=== PATIENT | male | born 1990 | race Caucasian/White ===

== ENCOUNTER → 2019-07-16 09:54 | Outpatient (BNVA) | payer MEDICARE, MEDICAID, SELFPAY | PROVIDERS: Family Provider Nurse Practitioner Family; PCP Nurse Practitioner Family; Visit Provider Nurse Practitioner Family | DX: E78.2 Mixed hyperlipidemia (principal); E03.9 Hypothyroidism, unspecified | CPT/HCPCS: 80061; 84443 ==

== ENCOUNTER 2019-07-21 13:40 | Outpatient (CLI) | payer MEDICARE, MEDICAID, SELFPAY ==
--- NOTE | 2019-07-21 13:42 | USCV_ITS ---
Keshav Gonzales Age: 29 Gender: M : 1990 Exam Date: 07/21/2019 14:12 Ordering Phys: Jaylene Leggett MD ([email or web address]) Technologist: Gianfranco Zabala Exam Location: [facility] [place] Indication: EXERTIONAL DYSPNEA BP: 130 / 75 HR: 64 Rhythm: Sinus Technical Quality: Adequate MEASUREMENTS (Male / Female) Normal Values 2D ECHO LVOT Diameter 2.1 cm LV Ejection Fraction MOD 2C 68.1 % LV Ejection Fraction 2C AL 67.0 % LA Diameter 4.0 cm Aorta at Sinotubular Diameter 3.1 cm M-MODE LV Diastolic Diameter MM 5.8 cm 4.2 - 5.9 / 3.9 - 5.3 cm LV Systolic Diameter MM 4.1 cm LV Ejection Fraction MM Teich 55.1 % IVS Diastolic Thickness MM 0.8 cm 0.6 - 1.0 / 0.6 - 0.9 cm IVS Systolic Thickness MM 1.3 cm LVPW Diastolic Thickness MM 0.9 cm 0.6 - 1.0 / 0.6 - 0.9 cm LVPW Systolic Thickness MM 1.8 cm RV Diastolic Diameter MM 1.6 cm Aortic Annulus Diameter 3.2 cm LA Ao Ratio MM 1.2 MV E Point Septal Separation 1.2 cm DOPPLER AV Peak Velocity 120.0 cm/s LVOT Peak Velocity 102.0 cm/s AV Area Cont Eq vti 2.5 cm squared AV Area Cont Eq pk 2.8 cm squared MV Area PHT 5.0 cm squared Mitral E to A Ratio 0.8 MV E' Velocity 11.0 cm/s Mitral E to MV E' Ratio 6.7 Mitral E to LV E' Lateral Ratio 5.9 Mitral E to LV E' Septal Ratio 7.8 TR Peak Velocity 134.0 cm/s TR Peak Gradient 7.1 mmHg TV Peak E Velocity 94.0 cm/s Right Atrial Pressure 3.0 mmHg Pulmonary Artery Systolic Pressu 10.2 mmHg PV Peak Velocity 77.0 cm/s FINDINGS Left Ventricle Normal left ventricular cavity size. Normal left ventricular wall thickness. Normal left ventricular systolic function. Left ventricular ejection fraction is estimated at 55-60 %. No regional wall motion abnormalities. Normal diastolic function. Right Ventricle Normal right ventricular size and systolic function. Right ventricular systolic pressure 10.2 mmHg. Right Atrium Normal right atrial size. Left Atrium Normal left atrial size. Mitral Valve Structurally normal mitral valve. No mitral valve stenosis. Trace mitral valve regurgitation. Aortic Valve Structurally normal trileaflet aortic valve. No aortic valve stenosis. No aortic valve regurgitation. Tricuspid Valve Structurally normal tricuspid valve. Trace tricuspid valve regurgitation. Pulmonic Valve Pulmonic valve not well visualized. No pulmonary valve stenosis. No pulmonary valve regurgitation. Pericardium No pericardial effusion. Aorta Normal size aortic root and proximal ascending aorta. CONCLUSIONS 1. Normal left ventricular cavity size, wall thickness and systolic function. Left ventricular ejection fraction is estimated at 55-60 %. No regional wall motion abnormalities. Normal diastolic function. 2. Normal right ventricular size and systolic function. 3. No significant valvular abnormality. 4. No prior similar studies to compare. Jaylene Leggett MD (Electronically Signed) Final Date: 22 July 2019 13:53 S
== END 2019-07-21 13:41 | disposition home or self-care (01) ==
LOC: RAD 13:41
PROVIDERS: Family Provider Nurse Practitioner Family; PCP Nurse Practitioner Family; Visit Provider Internal Medicine Cardiovascular Disease
DX: I08.1 Rheumatic disorders of both mitral and tricuspid valves (principal); R06.09 Other forms of dyspnea
CPT/HCPCS: 93306

== ENCOUNTER → 2019-08-27 09:43 | Outpatient (BNVA) | payer MEDICARE, MEDICAID, SELFPAY | PROVIDERS: Visit Provider Nurse Practitioner | DX: F33.0 Major depressive disorder, recurrent, mild (principal); F84.0 Autistic disorder; F43.12 Post-traumatic stress disorder, chronic | CPT/HCPCS: 99213 ==

== ENCOUNTER → 2019-12-02 11:32 | Outpatient (BNVA) | payer MEDICARE, MEDICAID, SELFPAY | PROVIDERS: Visit Provider Nurse Practitioner Family | DX: I10 Essential (primary) hypertension (principal); R73.9 Hyperglycemia, unspecified | CPT/HCPCS: 80053; 80061; 83036; 84443; 85025 ==

== ENCOUNTER → 2020-02-10 09:14 | Outpatient (BNVA) | payer MEDICARE, MEDICAID, SELFPAY | PROVIDERS: Visit Provider Nurse Practitioner | DX: F43.12 Post-traumatic stress disorder, chronic (principal); F84.0 Autistic disorder; F33.0 Major depressive disorder, recurrent, mild | CPT/HCPCS: 99213 ==

== ENCOUNTER → 2020-05-20 09:01 | Outpatient (BNVA) | payer MEDICARE, MEDICAID, SELFPAY | PROVIDERS: Visit Provider Family Medicine | DX: E03.9 Hypothyroidism, unspecified (principal); E78.5 Hyperlipidemia, unspecified; I10 Essential (primary) hypertension | CPT/HCPCS: 80053; 80061; 84443; 85025 ==

== ENCOUNTER → 2020-08-17 11:30 | Outpatient (BNVA) | payer MEDICARE, MEDICAID, SELFPAY | PROVIDERS: Visit Provider Nurse Practitioner | DX: F33.0 Major depressive disorder, recurrent, mild (principal); F84.0 Autistic disorder; F43.12 Post-traumatic stress disorder, chronic | CPT/HCPCS: 99214 ==

== ENCOUNTER → 2020-09-02 17:22 | Outpatient (BNVA) | payer MEDICARE, MEDICAID, SELFPAY | PROVIDERS: Visit Provider Nurse Practitioner Family | DX: R73.03 Prediabetes (principal); I10 Essential (primary) hypertension; E03.9 Hypothyroidism, unspecified | CPT/HCPCS: 80053; 80061; 83036; 84443; 85025 ==

== ENCOUNTER 2020-12-16 15:50 | Emergency (ER) | payer MEDICARE, MEDICAID, SELFPAY ==
[2020-12-16 16:00] VITALS: BP 115/74; PULSE 77; RESP 18; TEMP 36.8; O2SAT 97; BMI 40.3
--- NOTE | 2020-12-16 16:30 | CTR_ITS ---
PROCEDURE INFORMATION: Exam: CT Abdomen And Pelvis With Contrast Exam date and time: 12/16/2020 4:30 PM Age: 30 years old Clinical indication: Patient HX: Rectal pain x 5-6 days. Constipation x 2 days; Additional info: Rectal pain, constipation TECHNIQUE: Imaging protocol: Computed tomography of the abdomen and pelvis with contrast. Total images: 270 Radiation optimization: All CT scans at this facility use at least one of these dose optimization techniques: automated exposure control; mA and/or kV adjustment per patient size (includes targeted exams where dose is matched to clinical indication); or iterative reconstruction. Contrast material: OMNI 300; Contrast volume: 95 ml; Contrast route: INTRAVENOUS (IV); COMPARISON: No relevant prior studies available. RADIATION DOSE METRICS: Total DLP (mGy-cm): 2068.87 FINDINGS: Lungs: Limited assessment of the lung bases fails to reveal evidence for active cardiopulmonary process. Liver: Marked diffuse fatty infiltration of the liver with hepatomegaly. No visible hepatic mass or cystic structure. Gallbladder and bile ducts: Unremarkable. No calcified stones. No ductal dilation. Pancreas: Pancreas is unremarkable. No visible pancreatic ductal ectasia. Spleen: Splenomegaly. Adrenal glands: Adrenal glands unremarkable. Kidneys and ureters: No hydronephrosis or perinephric fluid. No visible nephrolithiasis. No visible ureterolithiasis. Stomach and bowel: Assessment of the hollow viscus fails to reveal evidence of active or acute pathology. Nonobstructed bowel pattern. No visible acute diverticulitis. No visible adynamic or reactive ileus. Moderate amount of fecal residue. Appendix: The appendix is visualized and appears noninflamed. Intraperitoneal space: No visible pneumoperitoneum or intraperitoneal ascites. No visible evidence of mesenteric lymphadenitis or active mesenteritis/panniculitis. Vasculature: The abdominal aorta is nonaneurysmal. Portal vein patent. Lymph nodes: No current visible evidence of active mesenteric or retroperitoneal lymphadenopathy. Urinary bladder: Urinary bladder unremarkable. Reproductive: Unremarkable as visualized. Bones/joints: No visible active or acute osseous pathology. Bilateral spondylolysis L5/S1 without spondylolisthesis. Soft tissues: Heavy body habitus. Other findings: Motion artifact. CT/CT abdomen pelvis w con* [id number] IMPRESSION: 1. Currently no visible evidence for acute abdominal or pelvic pathologic process. 2. Marked diffuse fatty infiltration of the liver with hepatomegaly. 3. Splenomegaly. Radiation Dose CTDIVOL = (mGy): DLP = 2069.87 (mGy-cm)
--- NOTE | 2020-12-16 16:32 | W.ED.MALEGU ---
HPI - Male Genitourinary General: Chief complaint: Urogenital-Male Stated complaint: possible abscess in rectum Time Seen by Provider: 12/16/20 16:20 History of Present Illness: HPI Narrative: Patient is a 30-year-old male comes to the ED with rectal pain and constipation. Patient was sent here to the ED by urgent care. Urgent care provider was suspicious after doing an exam of a potential rectal abscess. Urgent care provider said she did her digital rectal exam and red blood was present on finger and she felt the swollen tender area inside the rectum as well. Patient says he has been having these symptoms for about a week. Says it hurts whenever he has a bowel movement any describes that it feels like something is blocking his stool. Is painful to sit down as well. He says he has not had a bowel movement about 2 days and the last time he had a bowel movement he was constipated and it was hard and he had to push a lot to get it out. Denies any nausea/vomiting, fever, chills, abdominal pain, bladder symptoms. Associated symptoms: Deny dysuria, hematuria, nausea or vomiting Review of Systems Const: Denies: fever(s), chills or fatigue Eyes: Denies: change in vision or eye discomfort ENMT: Denies: throat pain, odynophagia, nasal discharge or nasal congestion Card: Denies: chest pain, palpitations, edema, swelling of feet/ankles, dyspnea on exertion or orthopnea Resp: Denies: dyspnea, productive cough or non-productive cough GI: Reports: constipation, pain on defecation and rectal pain; Denies: abdominal pain, nausea, vomiting, diarrhea or hematochezia : Denies: flank pain, difficulty urinating, dysuria or hematuria Musc: Denies: neck pain, back pain or extremity swelling Skin/Breast: Denies: rash or new lesions Neuro: Denies: headache(s), numbness in extremities or weakness in extremities PFSH ED PFSH: Medical History Autistic disorder Major depressive disorder, recurrent, mild Post-traumatic stress disorder, chronic Social History Smoking and tobacco status: never smoked Second hand smoke exposure: No Alcohol intake: never Caregiver/support person: Yes Lives independently: No Housing: Other Details: [facility] Marital status: Single service: No Current occupational status: disabled History of recent travel: No Current gender identity: Male Physical Exam Const: COMMON NORMALS: no acute distress, patient oriented x3 and alert GENERAL APPEARANCE: cooperative and comfortable HENMT: COMMON NORMALS: normocephalic HEAD & SCALP: normocephalic MOUTH: Normal oral and palatal mucosa present THROAT: posterior oropharynx normal and uvula midline Eye: COMMON NORMALS: Equal, round and reactive pupils present PUPIL: Yes Equal, round and reactive pupils present Neck/C-Spine: COMMON NORMALS: supple GENERAL: Yes normal visual inspection Resp: COMMON NORMALS: normal respiratory effort, No retractions, No use of accessory muscles and clear to auscultation bilaterally AUSCULTATION: clear to auscultation bilaterally Cardio: COMMON NORMALS: regular rate, regular rhythm, S1 normal heart sound present, S2 normal heart sound present, No gallops present (Cardio), No clicks present (Cardio), No murmurs present (Cardio) and Peripheral pulses 2+ throughout RATE: regular rate RHYTHM: regular rhythm HEART SOUNDS: S1 normal heart sound present and S2 normal heart sound present PERIPHERAL PULSES: Peripheral pulses 2+ throughout GI: COMMON NORMALS: Normal to inspection, nondistended, normoactive bowel sounds present, Soft to palpation, non-tender and no masses PALPATION: Yes Soft to palpation RECTAL EXAM: Yes Visual inspection abnormal (Patient has some red blood at rectum.) OTHER: Visual rectal exam performed. No obvious swelling or abscess noted. Patient does have visible red blood at the anus. : COMMON NORMALS: Yes no CVA tenderness BLADDER/KIDNEY EXAM: Yes no CVA tenderness Back/Pelvis: COMMON NORMALS: no CVA tenderness Extremity: COMMON NORMALS: normal to inspection Neuro: COMMON NORMALS: patient oriented x3 and moves all extremities SENSORIUM/ORIENTATION: Yes alert Skin: GENERAL SKIN EXAM: dry skin Course Vital Signs: Vital signs: Vital Signs Temperature 98.3 F 12/16/20 16:00 Pulse Rate 68 12/16/20 18:14 Respiratory Rate 18 12/16/20 18:14 Blood Pressure 116/78 12/16/20 18:14 Pulse Oximetry 98 12/16/20 18:14 MDM - Male MDM Narrative: Medical decision making narrative: Patient is a 30-year-old male comes to the ED with rectal pain. Patient was sent over here by urgent care for concerns of rectal abscess. Patient appears nontoxic and in no acute distress. Upon visual exam patient did have some red blood at the anus but no visible external hemorrhoids, abscess or mass seen. Labs were unremarkable. CT of abdomen pelvis showed no acute findings or abscess seen. Patient was diagnosed with internal hemorrhoids. He was discharged home and told to follow-up with his PCP in 7 to 10 days reevaluation. Return to ED precautions given. Patient understood and agreed with plan. Lab Data: Labs: Lab Results 12/16/20 12/16/20 Range/Units 16:42 16:42 WBC 7.6 (4.0-10.0) 10^3/ uL RBC 5.10 (4.1-5.3) 10^6/u L Hgb 14.6 (11.7-16.6) g/dL Hct 44.2 (42.0-52.0) % MCV 86.7 (80-94) fL MCH 28.6 (28.0-34.0) pg MCHC 33.0 (30.0-36.0) g/dL RDW 13.0 (12.1-15.1) % Plt Count 223 (130-400) 10^3/c mm MPV 9.2 (7.4-10.4) fL Neut % (Auto) 61.1 % Lymph % (Auto) 32.1 % Benzie % (Auto) 4.0 % Eos % (Auto) 1.3 % Baso % (Auto) 0.8 % Neut # (Auto) 4.64 (1.8-7.7) 10^3/u L Lymph # (Auto) 2.4 (0.8-4.8) 10^3/u L Benzie # (Auto) 0.3 (0.2-0.9) 10^3/u L Eos # (Auto) 0.1 (0.0-0.8) 10^3/u L Baso # (Auto) 0.1 (0.0-0.1) 10^3/u L Nucleated RBC % (a uto) 0 % Nucleated RBCs # 0.0 /100WBC Sodium 142 (136-145) mmol/L Potassium 4.2 (3.5-5.1) mmol/L Chloride 106 (98-107) mmol/L Carbon Dioxide 26 (22-29) mmol/L Anion Gap 14.2 (5-19) BUN 12 (6-20) mg/dL Creatinine 1.2 (0.7-1.2) mg/dL GFR Calculation 70.6 L (90-130) mL/min Glucose 100 (65-115) mg/dL Calculated Osmolal ity 294 (285-295) mOsm/k g Calcium 8.9 (8.5-10.5) mg/dL Total Bilirubin 0.5 (0.15-1.2) mg/dL AST 18 (0-40) U/L ALT 28 (0-41) U/L Alkaline Phosphata se 56 (40-130) IU/L Total Protein 6.7 (6.6-8.7) g/dL Albumin 4.2 (3.5-5.2) g/dL Globulin 2.5 (1.3-4.6) g/dL Lipase 34 (13-60) U/L Imaging Data: CT Abd/Pel: Attestation: I personally reviewed and interpreted this imaging study as follows: Radiologist's impression: [employer] [id number] Scan ReportSigned Patient: Keshav Gonzales JRUnit #: [id number]: 1990Acct#:[id number]/Sex: 30 / MADM Date: 12/16/20Loc: ERRoom/Bed:Attending Dr: Ordering Provider/Ordering MD: Joseph Vu Date of Service: 12/16/20 Procedure(s): CT abdomen pelvis w con* [id number] Accession Number(s): [id number] Report Number: [id number] PROCEDURE INFORMATION: Exam: CT Abdomen And Pelvis With Contrast Exam date and time: 12/16/2020 4:30 PM Age: 30 years old Clinical indication: Patient HX: Rectal pain x 5-6 days. Constipation x 2 days; Additional info: Rectal pain, constipation TECHNIQUE: Imaging protocol: Computed tomography of the abdomen and pelvis with contrast. Total images: 270 Radiation optimization: All CT scans at this facility use at least one of these dose optimization techniques: automated exposure control; mA and/or kV adjustment per patient size (includes targeted exams where dose is matched to clinical indication); or iterative reconstruction. Contrast material: OMNI 300; Contrast volume: 95 ml; Contrast route: INTRAVENOUS (IV); COMPARISON: No relevant prior studies available. RADIATION DOSE METRICS: Total DLP (mGy-cm): 2068.87 FINDINGS: Lungs: Limited assessment of the lung bases fails to reveal evidence for active cardiopulmonary process. Liver: Marked diffuse fatty infiltration of the liver with hepatomegaly. No visible hepatic mass or cystic structure. Gallbladder and bile ducts: Unremarkable. No calcified stones. No ductal dilation. Pancreas: Pancreas is unremarkable. No visible pancreatic ductal ectasia. Spleen: Splenomegaly. Adrenal glands: Adrenal glands unremarkable. Kidneys and ureters: No hydronephrosis or perinephric fluid. No visible nephrolithiasis. No visible ureterolithiasis. Stomach and bowel: Assessment of the hollow viscus fails to reveal evidence of active or acute pathology. Nonobstructed bowel pattern. No visible acute diverticulitis. No visible adynamic or reactive ileus. Moderate amount of fecal residue. Appendix: The appendix is visualized and appears noninflamed. Intraperitoneal space: No visible pneumoperitoneum or intraperitoneal ascites. No visible evidence of mesenteric lymphadenitis or active mesenteritis/panniculitis. Vasculature: The abdominal aorta is nonaneurysmal. Portal vein patent. Lymph nodes: No current visible evidence of active mesenteric or retroperitoneal lymphadenopathy. Urinary bladder: Urinary bladder unremarkable. Reproductive: Unremarkable as visualized. Bones/joints: No visible active or acute osseous pathology. Bilateral spondylolysis L5/S1 without spondylolisthesis. Soft tissues: Heavy body habitus. Other findings: Motion artifact. CT/CT abdomen pelvis w con* [id number] IMPRESSION: 1. Currently no visible evidence for acute abdominal or pelvic pathologic process. 2. Marked diffuse fatty infiltration of the liver with hepatomegaly. 3. Splenomegaly. Radiation Dose CTDIVOL = (mGy): DLP = 2068.87 (mGy-cm) Dictated By:Bel Crocker By:Bel Crocker Date/Time:12/16/201727DD/ 26 Discharge Plan Discharge Patient Disposition: Home Clinical Impression: Internal hemorrhoid Condition: Stable Prescriptions: New Preparation H(pe,cb) 0.25-88.44 % suppository 1 supp VA DAILY Qty: 12 RF: 0 No Action acetaminophen [Tylenol] 325 mg tablet 650 mg PO Q6H PRN (Reason: pain or fever) Qty: 60 RF: 3 buspirone 15 mg tablet See Rx Instructions PO .COMPLEX Qty: 90 RF: 5 Celexa 40 mg tablet 40 mg PO DAILY@0800 RF: 0 omeprazole 40 mg capsule,delayed release(DR/EC) 40 mg PO DAILY@0800 RF: 0 trazodone 100 mg tablet 100 mg PO BEDTIME@1900 RF: 0 levothyroxine 50 mcg tablet 50 mcg PO DAILY@0800 RF: 0 Topamax 100 mg tablet 100 mg PO BID@0800,1900 RF: 0 Abilify 5 mg tablet 5 mg PO DAILY@0800 RF: 0 Crestor 20 mg tablet 20 mg PO DAILY@0800 RF: 0 Discharge Orders: Discharge ED (Routine); Ordered 12/16/20 Ordered By: Lee Ogden Referrals: Marlee Ruth FNP [Primary Care Provider] - Discharge Diet: Usual diet Discharge Activity: Resume usual activity Patient Instructions: Constipation (ED), Hemorrhoids (ED) Activity Restrictions/Additional Instructions: Drink plenty of water. High-fiber diet. Can use Preparation H or similar [id number] product to help with hemorrhoids. Follow-up your family medical provider see about referral to passenger relations representative if bleeding and pressure continues. Coding Level of Care Code ED Engineer for Matti Fwd Exam Comprehensive
[2020-12-16 16:48] LABS: Basophils # 0.1 10^3/uL (0.0-0.1); Basophils % 0.8 %; Eosinophils # 0.1 10^3/uL (0.0-0.8); Eosinophils % 1.3 %; Hematocrit 44.2 % (42.0-52.0); Hemoglobin 14.6 g/dL (11.7-16.6); Lymphocytes # 2.4 10^3/uL (0.8-4.8); Lymphocytes % 32.1 %; Mean Corpuscular Hemoglobin 28.6 pg (28.0-34.0); Mean Corpuscular Volume 86.7 fL (80-94); Mean Platelet Volume 9.2 fL (7.4-10.4); Monocytes # 0.3 10^3/uL (0.2-0.9); Neutrophils # 4.64 10^3/uL (1.8-7.7); Neutrophils % 61.1 %; Nucleated Red Blood Cells % 0 %; Platelet Count 223 10^3/cmm (130-400); White Blood Count 7.6 10^3/uL (4.0-10.0)
[2020-12-16] MEDS: iohexol 300 mg/mL 100 mL Btl IV (16:51)
[2020-12-16] MEDS: sodium chloride 0.9% 1,000 ML 999 ML IV (17:02)
[2020-12-16 17:05] LABS: Alanine Aminotransferase 28 U/L (0-41); Albumin Level 4.2 g/dL (3.5-5.2); Alkaline Phosphatase 56 IU/L (40-130); Anion Gap 14.2 (5-19); Aspartate Amino Transferase 18 U/L (0-40); Blood Urea Nitrogen 12 mg/dL (6-20); Calcium 8.9 mg/dL (8.5-10.5); Carbon Dioxide 26 mmol/L (22-29); Chloride 106 mmol/L (98-107); Globulin 2.5 g/dL (1.3-4.6); Glomerular Filtration Rate 70.6 mL/min (90-130); Glucose 100 mg/dL (65-115); Lipase 34 U/L (13-60); Osmolality Calculated 294 mOsm/kg (285-295); Potassium 4.2 mmol/L (3.5-5.1); Sodium 142 mmol/L (136-145); Total Bilirubin 0.5 mg/dL (0.15-1.2); Total Protein 6.7 g/dL (6.6-8.7)
[2020-12-16 18:14] VITALS: BP 116/78; PULSE 68; RESP 18; O2SAT 98
== END 2020-12-16 18:14 | disposition home or self-care (01) ==
PROVIDERS: Physician Assistant; Emergency Provider Nurse Practitioner Family; PCP Nurse Practitioner Family
DX: K62.89 Other specified diseases of anus and rectum (principal); K64.8 Other hemorrhoids; F84.0 Autistic disorder
CPT/HCPCS: 74177; 80053; 83690; 85025; 96360; 99283; J7030; Q9967

== ENCOUNTER → 2021-04-06 14:01 | Outpatient (BNVA) | payer MEDICARE, MEDICAID, SELFPAY | PROVIDERS: PCP Nurse Practitioner Family; Visit Provider Nurse Practitioner | DX: F43.12 Post-traumatic stress disorder, chronic (principal); F84.0 Autistic disorder; F33.0 Major depressive disorder, recurrent, mild | CPT/HCPCS: 99214 ==

== ENCOUNTER → 2021-05-24 11:41 | Outpatient (BNVA) | payer MEDICARE, MEDICAID, SELFPAY | PROVIDERS: PCP Nurse Practitioner Family; Visit Provider Nurse Practitioner Family | DX: I10 Essential (primary) hypertension (principal); R73.03 Prediabetes | CPT/HCPCS: 80053; 80061; 83036; 84443; 85025 ==

== ENCOUNTER → 2021-09-27 13:29 | Outpatient (BNVA) | payer MEDICARE, MEDICAID, SELFPAY | PROVIDERS: PCP Nurse Practitioner Family; Visit Provider Nurse Practitioner | DX: F33.0 Major depressive disorder, recurrent, mild (principal); F84.0 Autistic disorder; F43.12 Post-traumatic stress disorder, chronic | CPT/HCPCS: 99214 ==

== ENCOUNTER → 2021-10-12 08:58 | Outpatient (BNVA) | payer MEDICARE, MEDICAID, SELFPAY | PROVIDERS: PCP Nurse Practitioner Family; Visit Provider Nurse Practitioner Family | DX: R73.03 Prediabetes (principal); E03.9 Hypothyroidism, unspecified | CPT/HCPCS: 80053; 80061; 83036; 84443; 85025 ==

== ENCOUNTER → 2021-10-25 14:03 | Outpatient (BNVA) | payer MEDICARE, MEDICAID, SELFPAY | PROVIDERS: PCP Nurse Practitioner Family; Visit Provider Nurse Practitioner Family | DX: J02.9 Acute pharyngitis, unspecified (principal); H66.93 Otitis media, unspecified, bilateral; J40 Bronchitis, not specified as acute or chronic; K21.9 Gastro-esophageal reflux disease without esophagitis; E78.5 Hyperlipidemia, unspecified; E03.9 Hypothyroidism, unspecified; R73.03 Prediabetes; J30.9 Allergic rhinitis, unspecified | CPT/HCPCS: 87071; 87880 ==

== ENCOUNTER → 2022-02-28 16:59 | Outpatient (BNVA) | payer MEDICARE, MEDICAID, SELFPAY | PROVIDERS: PCP Nurse Practitioner Family; Visit Provider Nurse Practitioner Family | DX: M54.50 Low back pain, unspecified (principal) | CPT/HCPCS: 81000 ==

== ENCOUNTER → 2022-06-21 08:23 | Outpatient (BNVA) | payer MEDICARE, MEDICAID, SELFPAY | PROVIDERS: PCP Nurse Practitioner Family; Visit Provider Nurse Practitioner Family | DX: R73.03 Prediabetes (principal); E78.5 Hyperlipidemia, unspecified; E03.9 Hypothyroidism, unspecified | CPT/HCPCS: 80053; 80061; 83036; 84443; 85025 ==

== ENCOUNTER → 2023-03-13 11:41 | Outpatient (BNVA) | payer MEDICARE, MEDICAID, SELFPAY | PROVIDERS: PCP Nurse Practitioner Family; Visit Provider Nurse Practitioner Family | DX: I10 Essential (primary) hypertension (principal); E03.9 Hypothyroidism, unspecified; R73.03 Prediabetes | CPT/HCPCS: 80053; 80061; 83036; 84443; 85025 ==

== ENCOUNTER → 2023-09-04 11:45 | Outpatient (BNVA) | payer MEDICARE, MEDICAID, SELFPAY | PROVIDERS: PCP Nurse Practitioner Family; Visit Provider Nurse Practitioner Family | DX: E03.9 Hypothyroidism, unspecified (principal); R73.03 Prediabetes; I10 Essential (primary) hypertension | CPT/HCPCS: 80053; 80061; 83036; 84443; 85025 ==

== ENCOUNTER → 2023-10-25 11:18 | Outpatient (BNVA) | payer MEDICARE, MEDICAID, OTHER, SELFPAY | PROVIDERS: PCP Nurse Practitioner Family; Visit Provider Nurse Practitioner Family | DX: H61.21 Impacted cerumen, right ear (principal); M54.50 Low back pain, unspecified; G89.29 Other chronic pain; R06.02 Shortness of breath; Z79.899 Other long term (current) drug therapy | CPT/HCPCS: 81000 ==

== ENCOUNTER → 2024-04-02 12:06 | Outpatient (BNVA) | payer MEDICARE, MEDICAID, SELFPAY | PROVIDERS: PCP Nurse Practitioner Family; Visit Provider Nurse Practitioner Family | DX: E78.5 Hyperlipidemia, unspecified (principal); R73.03 Prediabetes; E03.9 Hypothyroidism, unspecified | CPT/HCPCS: 80053; 80061; 83036; 84443; 85025 ==

== ENCOUNTER → 2024-09-22 10:55 | Outpatient (BNVA) | payer MEDICARE, MEDICAID, SELFPAY | PROVIDERS: PCP Nurse Practitioner Family; Visit Provider Nurse Practitioner Family | DX: E78.5 Hyperlipidemia, unspecified (principal); R73.03 Prediabetes | CPT/HCPCS: 80053; 80061; 83036; 84443; 85025 ==